=== PATIENT | male | born 1985 | race Caucasian/White ===

== ENCOUNTER 2020-06-19 14:08 | Emergency (ER) | payer OTHER, SELFPAY ==
[2020-06-19 14:09] VITALS: BP 135/88; PULSE 66; RESP 20; TEMP 36.7; O2SAT 98; BMI 30.2
--- NOTE | 2020-06-19 14:26 | XR_ITS ---
PROCEDURE: XR HAND LT MIN 3V CLINICAL INDICATION: open finger deformity Laceration with injury and pain COMPARISON: No exams were available for comparison FINDINGS: There is a nondisplaced fracture involves the tuft of the distal phalanx of the thumb associated with soft tissue laceration. A small density is present along the distal aspect of the soft tissues of the thumb and could be related to a foreign body or bony fragment. The joint spaces are well-preserved. No significant degenerative/arthritic changes. No erosive changes evident. Other findings:None. IMPRESSION: Fracture of the tuft distal phalanx of the thumb with foreign body versus small bony fragment Dictated by: Patricio Aburto MD 06/19/2020 15:38 Patricio Aburto MD in [place] 06/19/2020 15:38
--- NOTE | 2020-06-19 14:47 | PC.NURSE ---
pt back from xray
--- NOTE | 2020-06-19 16:39 | PC.NURSE ---
Patient and family member with pt was standing outside the room while other pts were in the ER, they were asked to step back into the room for other pts privacy. Pt family member stated that they were about to leave. Stated to the pt that they had a choice to sign out AMA if they needed to. PT asked how much longer it will be before the doctor will be in to stitch his finger. Explained to the pt and family member that a time frame was predictable at this time due to possible other critical pts that can come in the ER. Pt family member stated that the doctor had not been doing nothing except sitting in his chair at the computer, educated the pt family member that the doctor was DC other pts that he had in the ER. Pt family member asked pt if he wanted to go to [facility]. Pt stated that he just needed to get home for his kids and he just wanted to know a time that he will be in to stitch his finger. MD responded stating that he will be into do his finger after he finished a pt DC orders. Pt is agreeable to stay until the MD can come in to do this.
--- NOTE | 2020-06-19 17:02 | HMH.EDGENADL ---
ED Disposition Clinical Impression: Open fracture of thumb Qualifiers: Encounter type: initial encounter Phalanx: distal Fracture alignment: nondisplaced Laterality: left Qualified Code(s): S62.525B - Nondisplaced fracture of distal phalanx of left thumb, initial encounter for open fracture Thumb laceration Qualifiers: Encounter type: initial encounter Damage to nail status: without damage Foreign body presence: without foreign body Laterality: left Qualified Code(s): S61.012A - Laceration without foreign body of left thumb without damage to nail, initial encounter Disposition: Home, Self-Care Condition on Discharge: Good Instructions: DI for Laceration Repair Additional Instructions: Follow-up with plastic surgery [facility]. Recommend calling the [facility] clinic mainline to schedule an appointment. Finish the entire course of antibiotics and return to the ED for any new or worsening symptoms including severe pain or redness of the hand and or fever Prescriptions: cephALEXin [Keflex 500mg Cap] 500 mg PO Q6H 7 Days #28 cap Prescription Printed Referrals: Nino Robledo MD [Primary Care Provider] - Dir Message /[facility] [Outside] - 3 days (Open tuft fracture to left thumb secondary to table saw. Needs hand plastic/ortho surgery evaluation) - Critical Care Critical Care Time: No Attestation: On 06/19/20, the high probability of a clinically significant, sudden or life threatening deterioration of the following system(s) required my full and direct attention, intervention and personal management. The time I documented below is in addition to time spent performing reported procedures but includes the following listed in this critical care notation. Medical Decision Making - Medical Records Medical records reviewed: Yes: I reviewed the patient's medical records. - Braden Inquiry Pt receiving controlled substance: No Vital Signs: 06/19/20 14:09 Temperature 98.1 F Temperature Source Oral Pulse Rate [Left Radial] 66 Respiratory Rate 20 Blood Pressure [Right Arm] 135/88 Blood Pressure Mean [Right Arm] 103 Blood Pressure Source [Right Arm] Automatic Cuff Blood Pressure Position [Right Arm] Sitting 02 Sat by Pulse Oximetry 98 Oxygen Delivery Method Room Air Orders (Tests/Meds): ED MEDICATIONS Discontinued Medications Generic Name Dose Route Start Last Admin Trade Name Freq PRN Reason Stop Dose Admin Hydrocodone Bitart/Acetaminophen 1 tab 06/19/20 14:27 06/19/20 14:41 Hydrocodone/Apap 5/325 Mg Tablet PO 06/19/20 14:28 1 tab ONCE ONE Administration Cefazolin Sodium 2 gm 06/19/20 16:08 06/19/20 16:56 Cefazolin 1gm Vial IM 06/19/20 16:09 2 gm ONCE ONE Administration Protocol Tetanus/Reduced Diphtheria/Acell Pertussis 0.5 ml 06/19/20 14:27 06/19/20 14:41 Tet/Diphth/Pert-Adult 0.5ml Syringe IM 06/19/20 14:28 0.5 ml .ONCE ONE Administration - Radiology Data #1 Image(s): Finger(s)/Thumb Image Reviewed: Yes I reviewed the patient's radiology image, Yes I have reviewed radiologist's interpretation Preliminary Findings: Abnormal Distal tuft fracture of the left thumb Medical Decision Narrative: 34-year-old male who presents after a table saw injury to the left thumb. Affects the volar surface of the left thumb with an open deformity avulsion laceration. Nailbed is intact sensation and blood flow are intact to the distal thumb. All tendons are intact with full range of motion of both joints. X-ray demonstrates distal tuft fracture. Patient was given 2 g of Ancef. Tdap was updated and repair was performed over the distal thumb. Thumb was wrapped and splinted and the patient was given a prescription for Keflex and referred to [facility] for further evaluation. General Adult HPI - General Chief complaint: Wound/Laceration Stated complaint: ao @ 1345 lac to L thumb Time Seen by Provider: 06/19/20 14:15 Mode of
[2020-06-19 17:13] VITALS: BP 130/65; PULSE 70; RESP 20; TEMP 36.7; O2SAT 100
== END 2020-06-19 17:15 | disposition home or self-care (01) ==
PROVIDERS: Emergency Provider Student in an Organized Health Care Education/Training Program; PCP Family Medicine
DX: S62.525B Nondisplaced fracture of distal phalanx of left thumb, initial encounter for open fracture (principal); S61.012A Laceration without foreign body of left thumb without damage to nail, initial encounter; W31.2XXA Contact with powered woodworking and forming machines, initial encounter; Y92.89 Other specified places as the place of occurrence of the external cause; F17.210 Nicotine dependence, cigarettes, uncomplicated; Z23 Encounter for immunization
CPT/HCPCS: 73130; 90471; 90715; 96372; 99282

== ENCOUNTER → 2021-08-14 10:18 | Outpatient (CLI) | payer OTHER, SELFPAY | PROVIDERS: PCP Family Medicine; Visit Provider Nurse Practitioner | DX: U07.1 COVID-19 (principal) | CPT/HCPCS: C9803; U0003; U0005 ==

== ENCOUNTER 2021-08-16 09:25 | Emergency (ER) | payer OTHER, SELFPAY ==
[2021-08-16 09:50] VITALS: BP 136/87; PULSE 86; RESP 19; TEMP 37; O2SAT 99; BMI 29.5
--- NOTE | 2021-08-16 10:29 | HMH.EDUTC ---
[facility] [place] Disposition Clinical Impression: COVID-19 virus test result unknown Disposition: Home, Self-Care Condition on Discharge: Good Instructions: COVID-19: Testing and Tracing Additional Instructions: covid swab was sent to lab, call tomorrow for results. self isolate until test results are known to be negative No sign of a bacterial infection. Likely viral. Viruses can take 7-14 days to run their course. Nasal saline and bulb syringe or nose Sheryl to remove nasal drainage to help with nasal congestion. Hard to eat, drink, sleep with nasal congestion so important to keep this cleaned out. Monitor temp. Tylenol or Motrin as needed for pain or fever Encourage fluids, water, Gatorade, Powerade, Pedialyte if infant/toddler/child Warm salt water gargles Warm fluids Sore throat lozenges Sleep elevated Humidifier/vaporizer Follow-up immediately for new or worsening symptoms or no noticeable improvement over the next 48-72 hours. Referrals: Nino Robledo MD [Primary Care Provider] - Time of Disposition: 10:37 Medical Decision Making - Braden Inquiry Pt receiving controlled substance: No Vital Signs: 08/16/21 09:50 Temperature 98.6 F Temperature Source Oral Pulse Rate [Right Brachial] 86 Respiratory Rate 19 Blood Pressure [Right Arm] 136/87 Blood Pressure Mean [Right Arm] 103 Blood Pressure Source [Right Arm] Automatic Cuff Blood Pressure Position [Right Arm] Sitting 02 Sat by Pulse Oximetry 99 Oxygen Delivery Method Room Air [facility] [place] HPI - General Chief complaint: Urgent [facility] Stated complaint: covid test Time Seen by Provider: 08/16/21 10:29 Mode of Arrival: Ambulatory Source of Information: Patient Limitations: No Limitations Description of Symptoms (Recalled from Triage Doc. by RN): PATIENT NEEDING COVID TEST TO RETURN TO WORK HEENT Symptoms (Recalled from RN notes): No Resp Symptoms (Recalled from RN notes): No Skin Symptoms (Recalled from RN notes): No MS Symptoms (Recalled from RN notes): No Functional Status (Recalled from RN notes): WNL - History of Present Illness Provider Complaint: 35 yr old male presnets for covid test to return back to work - Related Data Allergies Allergy/AdvReac Type Severity Reaction Status Date / Time No Known Allergies Allergy Verified 06/23/20 15:41 - Worker's Comp Is this a Worker's Comp case?: No [facility] History - Hepatitis A Screen Drug use history?: No High risk sexual behaviors?: No History of sexually transmitted infection?: No Currently employed?: No Childcare worker?: No Do you have indoor plumbing?: Yes Do you have electricity?: Yes Attestation statement:: This patient has been screened for Hepatitis A risk factors. I have reviewed the patient's past medical history: Yes Laterality Cases: Right: Other (lazy eye surgery ) - Social History Smoking Status: Current every day smoker # Packs/Day (cigarettes): 1 Alcohol Intake: never Occupational Status: employed ROS Obtained: Yes Systems reviewed as appropriate & no additional complaints - Constitutional Constitutional: Reports system reviewed and no additional complaints, except as docu, Denies fever(s) - Eyes Eyes: Reports system reviewed and no additional complaints, except as docu, Denies blurry vision - ENT Ears, Nose, Mouth, and Throat: Reports system reviewed and no additional complaints, except as docu, Denies dizziness - Cardiovascular Cardiovascular: Reports system reviewed and no additional complaints, except as docu, Denies chest pain - Respiratory Respiratory: Reports system reviewed and no additional complaints, except as docu, Denies shortness of breath - Gastrointestinal Gastrointestingal: Reports: system reviewed and no additional complaints, except as docu. Denies: abdominal pain - Musculoskeletal Musculoskeletal: Reports system reviewed and no additional complaints, except as docu, Denies joint pain - Integumentary/Breasts Skin/Breast: Reports system r
[2021-08-16 10:39] VITALS: BP 136/87; PULSE 86; RESP 19; TEMP 37; O2SAT 99
== END 2021-08-16 10:43 | disposition home or self-care (01) ==
PROVIDERS: Emergency Provider Nurse Practitioner Family; PCP Family Medicine
DX: U07.1 COVID-19 (principal); F17.210 Nicotine dependence, cigarettes, uncomplicated
CPT/HCPCS: 99202; C9803; G0463; U0003; U0005

== ENCOUNTER → 2021-10-12 09:59 | Outpatient (CLI) | payer OTHER, SELFPAY | PROVIDERS: PCP Family Medicine; Visit Provider Family Medicine | DX: G47.33 Obstructive sleep apnea (adult) (pediatric) (principal); R06.83 Snoring; R40.0 Somnolence | CPT/HCPCS: 95806 ==

== ENCOUNTER 2023-07-06 04:33 | Emergency (ER) | payer BC, SELFPAY ==
[2023-07-06] VITALS (12 sets, daily range): BP systolic 136–209; BP diastolic 74–115; PULSE 70–96; RESP 12–18; TEMP 36.7; O2SAT 95–100; BMI 30.8
--- NOTE | 2023-07-06 04:35 | ECG_ITS ---
APPROVED REPORT Exam: Resting ECG HR:92 bpm ECG Measurements Heart Rate 92 AXES UT 131 P 66 QRSd 95 QRS 79 QT 381 T 67 QTc 430 Conclusion SINUS RHYTHM POSSIBLE LEFT ATRIAL ENLARGEMENT [-0.1mV P-WAVE IN V1/V2] NONSPECIFIC ST & T-WAVE ABNORMALITY BORDERLINE ECG UNCONFIRMED REPORT Electronically signed by : Nino Hanna MD 07/06/2023 18:25:36
--- NOTE | 2023-07-06 04:47 | HMH.EDGENADL ---
Discharge Plan Disposition Patient Disposition: Still a Patient Condition: Good Prescriptions Prescriptions: New pantoprazole 40 mg tablet,delayed release (DR/EC) 40 mg PO DAILY Qty: 30 1RF Referrals Follow up/Referrals: Provider,Referral, MD [Referring] - See instructions Activity Restrictions/Add. Instructions Additional Instructions/Restrictions: You were evaluated in the emergency department today. Please avoid excess caffeine use. Make sure that you are getting good rest. Please keep a log of your blood pressures at home. I recommend taking it twice a day. Follow-up with your primary care provider to see if adjustments in your blood pressure medications need to be made. client support representative your prescription for pantoprazole and take as needed for acid reflux symptoms. Have your primary care provider recheck your kidney function and your potassium over the next few days. Return to the emergency department for any new or worsening symptoms. Clinical Impressions Clinical Impression: Caffeine overdose, Hypertension, Hypokalemia, Chronic GERD Instructions Patient Instructions: DI for High Blood Pressure, DI for Atypical Chest Pain, DI for Hypokalemia Discharge ED Provider: Cait Wood General Adult HPI <Cait Wood DO - Last Filed: 07/06/23 07:03> General Chief complaint: Arrhythmia/Palpitations Stated complaint: Chest Pain Time Seen by Provider: 07/06/23 04:35 Mode of Arrival: Ambulatory Source of Information: Patient and Spouse Limitations: No Limitations Description of Symptoms (Recalled from ER Triage Doc. by RN): Patient reports that he had a few beers last night and decided to stay up all night. Reports he drank a few energy drinks and has began having racing heartbeat, neck pain, History of Present Illness HPI narrative: This patient is a 37-year-old male with a history of hypertension on losartan presenting to the emergency department for evaluation with concern for palpitations and anxiety. 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 He notes that he had a few beers last night, and that he had 3 energy drinks to try and stay up. He had rockstar and red bull energy drinks. He also had chewing tobacco in his mouth. He became progressively more anxious, felt his heart racing, and felt that he had extremely dry mouth. His reports that it was almost as if he was vibrating. He also notes that he did not take last night's losartan, and he is also due for a dose this morning. He takes 25 mg in the morning and 50 mg at night. He denies any chest pain, abdominal pain, nausea, vomiting, changes in bowel movements, or other concerns. He was well prior to this. Related Data Previous Rx's Medication Instructions Recorded pantoprazole 40 mg tablet,delayed 40 mg PO DAILY #30 tabs 07/06/23 release Allergies Allergy/AdvReac Type Severity Reaction Status Date / Time No Known Allergies Allergy Verified 06/23/20 15:41 PFS <Cait Wood DO - Last Filed: 07/06/23 07:03> [facility] Disclaimer: The information contained in this section may have been updated after the patient was seen, as this information can be updated by other users. Social History Smoking Status: Unknown if ever smoked alcohol intake: never current occupational status: employed Travel in the last 8 weeks: None <Cait Wood DO - Last Filed: 07/06/23 07:03> ROS Obtained: Yes All systems reviewed & no additional complaints except as documented Physical Exam <Cait Wood DO - Last Filed: 07/06/23 07:03> General General appearance: alert and anxious Head Head exam: atraumatic and normocephalic Eye Eye exam: Present normal appearance, PERRL and EOMI ENT ENT exam: Present normal oropharynx, mucous membranes dry and normal external ear exam Neck Neck exam: Present normal inspection, full ROM and trachea midline; Abse
[2023-07-06 04:51] LABS: Basophils % 0.3 % (0.1-2.0); Eosinophils # 0.1 K/mm3 (0.0-0.4); Eosinophils % 0.5 % (0.1-12.0); Hematocrit 44.7 % (42.0-52.0); Hemoglobin 15.9 g/dL (14.1-18.0); Lymphocytes # 2.5 K/mm3 (0.7-4.5); Lymphocytes % 21.1 % (10-50); Mean Corpuscular HGB Conc 35.6 g/dL (31.8-35.4); Mean Corpuscular Volume 89.8 fl (80-94); Mean Platelet Volume 8.2 fl (7.4-10.4); Monocytes # 0.6 K/mm3 (0.1-1.0); Monocytes % 4.8 % (1.7-9.3); Neutrophils # 8.8 K/mm3 (1.8-7.8); Neutrophils % 73.4 % (37.0-80.0); Platelet Count 251 K/mm3 (142-424); Red Blood Count 4.97 M/mm3 (4.60-6.20); Red Cell Distribution Width 13.5 % (11.5-17.5)
[2023-07-06 04:59] LABS: Chloride 95 mmol/L (98-107); Sodium 135 mmol/L (136-145)
[2023-07-06 05:02] LABS: Alanine Aminotransferase 54 U/L (12-78); Albumin Level 5.2 g/dl (3.5-5.0); Albumin/Globulin Ratio 1.7 (1.1-1.8); Alkaline Phosphatase 79 U/L (38-126); Aspartate Amino Transferase 44 U/L (17-59); Bilirubin,Total 0.6 mg/dl (0.2-1.3); Blood Urea Nitrogen 19 mg/dl (9-20); Carbon Dioxide 30 mmol/L (22.0-30.0); Creatinine Clearance Estimated 96 mL/min (50-200); Estimated Glomerular Filt Rate 49 ml/min (>60); GFR (African American) 59 ML/MIN (>60); Total Protein,Serum 8.2 g/dl (6.3-8.2)
[2023-07-06 05:03] LABS: Calcium 8.9 mg/dl (8.4-10.2); Glucose 130 mg/dl (74-100)
--- NOTE | 2023-07-06 05:19 | PC.NURSE ---
Graciela from the lab called, Pts potassium is 3.0. RN and notified. CR
[2023-07-06 05:26] LABS: T4 (Thyroxine) 7.5 ug/dl (5.53-11.0)
[2023-07-06 05:40] LABS: Thyroid Stimulating Hormone 6.42 uIU/mL (0.465-4.68)
[2023-07-06 05:47] LABS: Troponin I < 0.01 ng/ml (0.00-0.034)
[2023-07-06 08:22] LABS: Troponin I < 0.01 ng/ml (0.00-0.034)
== END 2023-07-06 09:20 | disposition still patient (30) ==
PROVIDERS: Emergency Provider Emergency Medicine; PCP Family Medicine
DX: R07.89 Other chest pain (principal); T43.611A Poisoning by caffeine, accidental (unintentional), initial encounter; R00.2 Palpitations; E87.6 Hypokalemia; F41.0 Panic disorder [episodic paroxysmal anxiety]; I10 Essential (primary) hypertension; K21.9 Gastro-esophageal reflux disease without esophagitis; F17.290 Nicotine dependence, other tobacco product, uncomplicated
CPT/HCPCS: 80053; 84436; 84443; 84484; 85025; 93005; 96365; 99285